=== PATIENT | male | born 1965 | race Caucasian/White ===

== ENCOUNTER 2020-04-17 08:34 | Emergency (ER) | payer OTHER ==
[~2020-04-17] VITALS: Ht 167.6 cm; Wt 70.3 kg
[2020-04-17 09:13] VITALS: Ht 167.6 cm; Wt 70.3 kg
[2020-04-17 10:29] VITALS: BP 141/94
== END 2020-04-17 10:28 | disposition home or self-care (01) ==
LOC: ED
DX: S93.602A Unspecified sprain of left foot, initial encounter (principal); X58.XXXA Exposure to other specified factors, initial encounter; Y93.89 Activity, other specified; Y92.89 Other specified places as the place of occurrence of the external cause; Y99.8 Other external cause status